=== PATIENT | female | born 1950 | race Caucasian/White ===

== ENCOUNTER → 2023-07-16 | Emergency (ER) | payer BC, OTHER ==
[~2023-07-16] MED LIST: dexAMETHasone 10 MG/ML VIAL ONE
--- NOTE | 2023-07-16 13:44 | EDPHYS ---
Physician Documentation [facility] Name: Mc Thompson Age: 73 yrs Sex: Female : 1950 Arrival Date: 07/16/2023 Time: 13:00 Bed 9 Private MD: ED Physician Vahid Luna HPI: 07/16 13:41 This 73 yrs old Female presents to ER via Ambulatory with complaints of Back pain. kb 13:41 Patient is a 73-year-old female who presents for right low back pain that started on kb July 03, 13 days ago. States she has been seen by her PCP pain a prescription for Robaxin but it has not improved the symptoms. States she sees pain management for chronic knee pain so she has pain medication lab monitoring and to see if we can do imaging such as an MRI. Denies any urinary symptoms. Reports pain does radiate to front of right thigh which started last night. Pain worse with trying to climb into bed or into her truck.. Historical: - Allergies: 14:30 Morphine; ll1 - PMHx: 14:30 Hypertensive disorder; Diabetes mellitus; ll1 - Immunization history:: Adult Immunizations unknown. - Social history:: Smoking status: unknown. ROS: 13:41 Constitutional: Negative for fever, chills, and weight loss, kb 13:41 Back: Positive for pain at rest, pain with movement, radiated pain, of the right low back, 13:41 All other systems are negative, Exam: 13:41 Constitutional: This is a well developed, well nourished patient who is awake, alert, kb and in no acute distress. Head/Face: Normocephalic, atraumatic. ENT: Moist Mucous membranes Cardiovascular: Regular rate Respiratory: Respirations even and unlabored. No increased work of breathing. Talking in full sentences Abdomen/GI: Soft, non-tender. No distention Skin: Warm, dry with normal turgor. Normal color. MS/ Extremity: Pulses equal, no cyanosis. Neurovascular intact. Full, normal range of motion. Neuro: Awake and alert, GCS 15, oriented to person, place, time, and situation. Moves all extremities. Normal gait for patient, uses walker 13:41 Back: pain, that is moderate, of the right low back, ROM is painful, normal spinal alignment noted, CVA tenderness, is absent, vertebral tenderness, is not appreciated, Vital Signs: 13:19 BP 149 / 65; Pulse 76; Resp 18; Temp 98.1; Pulse Ox 98% on R/A; ph 14:10 BP 141 / 90; Pulse 60; Resp 16; Pulse Ox 99% ; ll1 MDM: 13:05 Patient medically screened. kb 13:41 Differential diagnosis: arthritis, strain, sciatica, Herniated disc. Data reviewed: kb vital signs, nurses notes. Counseling: I had a detailed discussion with the patient and/or guardian regarding the historical points, exam findings, and any diagnostic results supporting the discharge/admit diagnosis, the need for outpatient follow up, a family practitioner, to return to the emergency department if symptoms worsen or persist or if there are any questions or concerns that arise at home. 16:01 Test considered but Not performed: Labs: UA considered, but pt has no CVA tenderness kb and denies urinary symptoms. Pain is worse with movement. X-ray: x-ray considered, but pt has no bony tenderness, no injury. . Administered Medications: 13:33 Drug: Dexamethasone IM 10 mg IM once Route: IM; Site: right gluteus; ll1 14:10 Follow up: Response: No adverse reaction ll1 Disposition: 15:38 Co-signature as Attending Physician, Vahid Luna MD I reviewed the patient's care rt provided by the Advanced Practice Provider and agree with the diagnosis and treatment plan. Disposition Summary: 07/16/23 13:43 Discharge Ordered Notes: Location: Home kb Condition: Stable kb Diagnosis - Sciatica, right side kb Followup: kb - With: Emergency Department - When: As needed - Reason: Worsening of condition Followup: kb - With: Private Physician - When: 2 - 3 days - Reason: Recheck today's complaints, Continuance of care, Re-evaluation by your physician Discharge Instructions: - Discharge Summary Sheet kb - Sciatica, [id number] kb - Back Exercises, [id number] kb Forms: - Medication Reconciliation Form kb - Thank You Letter kb - Antibiotic Education kb - Prescription Opioid Use kb - Patient Portal Instructions kb - Leadership Thank You Letter kb Prescriptions: - Prednisone 20 mg Oral Tablet - take 1 tablet ORAL route once daily for 5 days; 5 tablet; Refills: 0, Product kb Selection Permitted Signatures: Luz Kim FNP-C FNP-Radha Martinez, RN RN ph Mauricio Macedo RN RN ll1 Vahid Luna MD MD rt Corrections: (The following items were deleted from the chart) 13:44 13:41 Patient is a 73-year-old female who presents for right low back pain that started kb on July 03 days ago. States she has been seen by her PCP pain a prescription for Robaxin but it has not improved the symptoms. States she sees pain management for chronic knee pain so she has pain medication lab monitoring and to see if we can do imaging such as an MRI. Denies any urinary symptoms.. kb
--- NOTE | 2023-07-16 13:44 | ER ---
Nurse's Notes [facility] Name: Mc Thompson Age: 73 yrs Sex: Female : 1950 Arrival Date: 07/16/2023 Time: 13:00 Bed 9 Private MD: Diagnosis: Sciatica, right side Presentation: 07/16 13:19 Chief complaint: Patient states: R sided back since 07/03, began radiating down R leg 2 ph days ago. Coronavirus screen: Vaccine status: Patient reports receiving the 2nd dose of the covid vaccine. Ebola Screen: No symptoms or risks identified at this time. Initial Sepsis Screen: Does the patient meet any 2 criteria? No. Patient's initial sepsis screen is negative. Does the patient have a suspected source of infection? No. Patient's initial sepsis screen is negative. Risk Assessment: Do you want to hurt yourself or someone else? Patient reports no desire to harm self or others. Onset of symptoms was July 16, 2023. 13:19 Method Of Arrival: Ambulatory ph 13:19 Acuity: RAN 3 ph Triage Assessment: 13:20 General: Appears in no apparent distress. Behavior is calm, cooperative. Pain: ph Complains of pain in back and right leg. Neuro: Level of Consciousness is awake, alert, obeys commands, Oriented to person, place, time, situation. Cardiovascular: Capillary refill < 3 seconds in bilateral fingers Patient's skin is warm and dry. Musculoskeletal: Circulation, motion, and sensation intact. Historical: - Allergies: 14:30 Morphine; ll1 - PMHx: 14:30 Hypertensive disorder; Diabetes mellitus; ll1 - Immunization history:: Adult Immunizations unknown. - Social history:: Smoking status: unknown. Screenin:10 [facility] ED Fall Risk Assessment (Adult) Impaired Gait Yes (1 pt) Mobility Assist ll1 Device Used Yes (1 pt) Score/Fall Risk Level 0 - 2 = Low Risk Oriented to surroundings, Maintained a safe environment, Educated pt \T\ family on fall prevention, incl call for assistance when getting out of bed, Hourly rounding (assess needs \T\ fall precautionary measures) done. Abuse screen: Denies threats or abuse. Nutritional screening: No deficits noted. Tuberculosis screening: No symptoms or risk factors identified. Assessment: 13:32 General: Appears uncomfortable, Behavior is calm, cooperative, appropriate for age. ll1 Pain: Complains of pain in right low back Pain radiates to right leg Quality of pain is described as aching, sharp. Neuro: No deficits noted. Cardiovascular: No deficits noted. Musculoskeletal: Circulation, motion, and sensation intact. Capillary refill < 3 seconds, Reports pain in right low back and right leg. 14:10 Reassessment: No changes from previously documented assessment. Patient and/or family ll1 updated on plan of care and expected duration. Pain level reassessed. Patient is alert, oriented x 3, equal unlabored respirations, skin warm/dry/pink. Vital Signs: 13:19 BP 149 / 65; Pulse 76; Resp 18; Temp 98.1; Pulse Ox 98% on R/A; ph 14:10 BP 141 / 90; Pulse 60; Resp 16; Pulse Ox 99% ; ll1 ED Course: 13:03 Patient arrived in ED. ph 13:05 Luz Kim FNP-C is PSYCHIATRICP. kb 13:05 Vahid Luna MD is Attending Physician. kb 13:20 Triage completed. ph 13:20 Arm band placed on Patient placed in an exam room. ph 14:12 Patient has correct armband on for positive identification. Bed in low position. Call ll1 light in reach. Provided Education on: n/a. 14:12 No provider procedures requiring assistance completed. Patient did not have IV access ll1 during this emergency room visit. Administered Medications: 13:33 Drug: Dexamethasone IM 10 mg IM once Route: IM; Site: right gluteus; ll1 14:10 Follow up: Response: No adverse reaction ll1 Medication: 13:21 VIS not applicable for this client. ph Outcome: 13:43 Discharge ordered by . kb 14:12 Patient left the ED. ll1 14:12 Discharged to home ambulatory, ll1 14:12 Condition: stable 14:12 Discharge instructions given to patient, Instructed on discharge instructions, follow up and referral plans. medication usage, Demonstrated understanding of instructions, follow-up care, medications, Prescriptions given X 1, Signatures: Luz Kim FNP-C FNP-Ckb Hall, Patricia, RN RN ph Mauricio Macedo RN RN ll1
[2023-07-16 14:41] VITALS: BP 149/65; TEMP 98.1; O2SAT 98
== END ==
LOC: ER 13:00
DX: M54.31 Sciatica, right side (principal)
CPT/HCPCS: J1100